=== PATIENT | female | born 1955 | race Caucasian/White ===

== ENCOUNTER 2016-12-01 18:20 | Emergency (ER) | payer MEDICAID ==
--- NOTE | 2016-12-01 20:35 | ED Physician Documentation ---
PD HPI HEENT - Stated complaint Stated Complaint: TOOTH PX - Chief complaint Chief Complaint: Heent - History obtained from History obtained from: Patient - History of Present Illness Timing - onset: How many days ago (2-3) Timing - duration: Days Timing - details: Gradual onset, Constant Pain level now: 8 Location: Tooth Improves: Nothing Worsens: Other (palpation, movement) Associated symptoms: No: Fever Recently seen: Not recently seen - Additional information Additional information: c/o pain associated with right lower tooth x 2-3 days, constant and progressive , spreading in area affected (now to jaw and throat). has dental appointment , called and was told she would be put on cancellation list to see if she can get in earlier. 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 Cardiovascular: Coronary stent HEENT: Tonsil/Adenoidectomy - Present Medications Home Medications: Ambulatory Orders Medication Instructions Recorded Confirmed Aspirin [Angie Chewable Aspirin] 81 mg PO DAILY 12/12/15 12/01/16 Amlodipine Besylate [Norvasc] 2.5 mg PO DAILY 12/01/16 12/01/16 Atorvastatin Calcium 40 mg PO DAILY 12/01/16 12/01/16 Carvedilol 3.125 mg PO BID 12/01/16 12/01/16 Gabapentin 100 mg PO TID 12/01/16 12/01/16 HYDROcod/ACETAM 5/325 [Piffard 5/325] 1 - 2 ea PO Q6H PRN #15 tablet 12/01/16 Lorazepam 0.5 mg PO PRN PRN 12/01/16 12/01/16 Penicillin V Potassium 500 mg PO QID #10 tablet 12/01/16 - Allergies Allergies/Adverse Reactions: Allergies Allergy/AdvReac Type Severity Reaction Status Date / Time erythromycin base Allergy Anaphylaxis Verified 12/12/15 10:20 - Social History Does the pt smoke?: No Smoking Status: Never smoker Does the pt drink ETOH?: No Does the pt have substance abuse?: No PD ED PE NORMAL - Vitals Vital signs reviewed: Yes - General General: Alert and oriented X 3, No acute distress, Well developed/nourished - HEENT HEENT: Moist mucous membranes PD ED PE EXPANDED - HEENT HEENT: Other (several teeth missing; the teeth that are present have mild- moderate decay. There is TTP right mandibular canine with a small, tender swelling adjacent gingiva (patient indicates to me that this swelling and tenderness has been present for months)) Results - Vitals Vitals: Vital Signs - 24 hr 12/01/16 12/01/16 12/01/16 18:21 19:34 21:05 Temperature 36.9 C 36.4 C L 36.5 C Heart Rate 69 72 67 Respiratory 18 18 18 Rate Blood Pressure 169/88 H 148/81 H 165/88 H O2 Saturation 98 96 98 Oxygen O2 Source Room air PD MEDICAL DECISION MAKING - ED course Complexity details: considered differential, d/w patient Departure - Departure Disposition: 01 Home, Self Care Clinical Impression: Pain, dental Condition: Good Instructions: ED Tooth Pain Prescriptions: HYDROcod/ACETAM 5/325 [Piffard 5/325] 1 - 2 ea PO Q6H PRN #15 tablet PRN Reason: Pain Penicillin V Potassium 500 mg PO QID #10 tablet Comments: Follow up with your dentist, next available appointment Discharge Date/Time: 12/01/16 21:10
[2016-12-01] MEDS ORDERED: HYDROcod/ACET 5/325 Prepack 6 PO STA (20:44)
[2016-12-01] MEDS ORDERED: PENICILLIN VK 250 MG TABLET PO STA (20:44)
[2016-12-01] MEDS ORDERED: HYDROcod/ACET 5/325 Prepack 6 PO ONE (20:58)
[2016-12-01] MEDS ORDERED: PENICILLIN VK 250 MG TABLET PO ONE (20:58)
[2016-12-01 21:06] VITALS: BP 165/88
== END 2016-12-01 21:10 | disposition home or self-care (01) ==
LOC: ED 18:20
DX: K08.89 Other specified disorders of teeth and supporting structures (principal); I50.9 Heart failure, unspecified; I25.2 Old myocardial infarction; Z79.82 Long term (current) use of aspirin
CPT/HCPCS: 99283; A9270